=== PATIENT | male | born 1980 | race Caucasian/White ===

== ENCOUNTER 2022-10-28 20:14 | Emergency (ER) | payer OTHER ==
[~2022-10-28] VITALS: Ht 182.9 cm; Wt 102.8 kg
[2022-10-28] MEDS ORDERED: PROTONIX40 MG PO (23:02)
--- NOTE | 2022-10-30 20:33 | EKG ---
[facility] [address] [facility] [place] [address] Signed Normal sinus rhythm Incomplete right bundle branch block Borderline ECG No previous ECGs available Confirmed by Adriel Ruffin MD () on 10/30/2022 8:32:56 PM Electronically Signed By: ADRIEL RUFFIN MD 10/30/222032 PATIENT NAME: VIRA BLACKWELL Electrocardiogram DATE OF : 76 PHYSICIAN: ADRIEL RUFFIN MD REPORT #: [id number] REPORT IS CONFIDENTIAL AND NOT TO BE RELEASED WITHOUT AUTHORIZATION
== END 2022-10-28 23:24 | disposition home or self-care (01) ==
LOC: ED 20:14
DX: R10.13 Epigastric pain (principal); R10.11 Right upper quadrant pain
CPT/HCPCS: 36415; 76705; 80053; 81001; 83690; 84484; 85025; 93005; 93010; 99284-25